=== PATIENT | female | born 1990 | race Caucasian/White ===

== ENCOUNTER → 2021-05-22 08:52 | Outpatient (CLI) | payer BC, SELFPAY ==
--- NOTE | ~2021-05-22 | XR_ITS ---
EXAMINATION: XR sacrum coccyx min 2V EXAM DATE: 05/22/2021 09:16 INDICATION: Coccyx and sacral fracture, due to fall . On 05/19 TECHNIQUE: Frontal, inlet, lateral projections of the sacrum. There is no prior study for compariso n. FINDINGS: Sacrum, sacroiliac joints, sacral arcuate lines are intact. There are no acute fractures o r dislocations identified. There is no subcutaneous gas. The soft tissue is unremarkable. There a re no radiopaque foreign bodies. IMPRESSION: No acute osseous findings. Reviewed, dictated and finalized at location B. 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
== END ==
PROVIDERS: Visit Provider Chiropractor
DX: M53.3 Sacrococcygeal disorders, not elsewhere classified (principal)
CPT/HCPCS: 72220